=== PATIENT | male | born 1965 | race Caucasian/White ===

== ENCOUNTER 2019-06-03 21:04 | Emergency (ER) | payer BC ==
[~2019-06-03] VITALS: Ht 188 cm; Wt 95.3 kg
[2019-06-03] MEDS ORDERED: NAPROSYN500 MG PO (23:28)
[2019-06-03] MEDS ORDERED: NORCO 5-325 TA1 EAC1 PO (23:28)
[2019-06-03 23:55] VITALS: BP 122/70
== END 2019-06-03 23:55 | disposition home or self-care (01) ==
LOC: ER 21:04
DX: T23.241A Burn of second degree of multiple right fingers (nail), including thumb, initial encounter (principal); T23.251A Burn of second degree of right palm, initial encounter; X08.8XXA Exposure to other specified smoke, fire and flames, initial encounter; Y93.G3 Activity, cooking and baking; Y92.89 Other specified places as the place of occurrence of the external cause; Y99.8 Other external cause status